=== PATIENT | male | born 1960 | race Caucasian/White ===

== ENCOUNTER → 2018-07-09 10:44 | Outpatient (CLI) | payer MEDICAID, SELFPAY ==
--- NOTE | 2018-07-09 10:53 | XR_ITS ---
XR shoulder LT min 2V HISTORY: ITS.REASON: LT SHOULDER PAIN,ARTHRITIS,NUMBNESS/TINGLING IN HANDS ORDERING PHYSICIAN: Gabriella Leavitt APRN PATIENT AGE: 58 years Comparison: 07/17/2014 FINDINGS: No fracture or dislocation. No lytic or blastic change. There is normal mineralization. There is moderate subacromial stenosis which may be seen with rotator cuff pathology and may be better evaluated with MRI of clinically warranted. This has developed since the previous exam of 07/17/2014 IMPRESSION: 1. Subacromial stenosis. 2. Otherwise negative left shoulder
== END ==
PROVIDERS: PCP Nurse Practitioner Family; Visit Provider Nurse Practitioner Family
DX: M25.512 Pain in left shoulder (principal); M19.90 Unspecified osteoarthritis, unspecified site; R20.2 Paresthesia of skin
CPT/HCPCS: 73030

== ENCOUNTER → 2018-08-02 14:00 | Outpatient (CLI) | payer MEDICAID, SELFPAY ==
--- NOTE | 2018-08-02 14:03 | XR_ITS ---
XR hip RT 2-3V w/pelvis, XR pelvis 1-2V Ordering Physician: Jeanne Keating MD Patient Age: 58 years: Male HISTORY: ITS.REASON: AP pelvis/AP lateral Right hip pain. Follow-up subtle fracture anterior acetabulum TECHNIQUE: Right HIP: AP and frog-leg view AP PELVIS included COMPARISON :July 10, 2017.. RIGHT HIP Right hip appears intact with normal relationships. Femoral head and neck appear satisfactory. The CT from 07/10/2018 showed a subtle fracture at the anterior, aspect of acetabulum where junction of the superior ramus.. This is not readily apparent on plain film as there is anatomic position to this region. Note subtle line of sclerosis passing vertically through this region but this is likely due to vascular calcification AP PELVIS Otherwise AP pelvis appears satisfactory and unremarkable. Again note hip joint spaces to be well-maintained bilaterally. Bones well mineralized throughout the pelvis. Sacrum and SI joints iliac bone tube is unremarkable. Atherosclerotic calcification at common femoral artery bilaterally groin noted.. Degenerative disc space narrowing L4/5 noted. Likely facet arthropathy L4/5 L5/S1 as well. IMPRESSION 1. Right hip with normal anatomic relationships on plain film. The subtle nondisplaced fracture at the anterior aspect of acetabulum seen on prior 07/10/2018 CT is not readily apparent on plain film. 2. Otherwise osseous pelvis intact and unremarkable. 3. Degenerative disc space narrowing at L4/5 incidentally noted. .
== END ==
PROVIDERS: PCP Nurse Practitioner Family; Visit Provider Orthopaedic Surgery
DX: S72.001A Fracture of unspecified part of neck of right femur, initial encounter for closed fracture (principal)
CPT/HCPCS: 72170; 73502